=== PATIENT | female | born 1960 | race Caucasian/White ===

== ENCOUNTER 2018-03-04 09:01 | Inpatient (IN) | payer OTHER ==
[~2018-03-04] VITALS: Ht 167.6 cm; Wt 52.6 kg
[2018-03-04 09:44] LABS: BASOPHILS % 0.3 % (0.0-2.0); EOSINOPHILS % 2.2 % (0.0-5.0); HEMATOCRIT. 40.7 % (36.0-48.0); HEMOGLOBIN. 14.3 g/dL (12.0-16.0); LYMPHOCYTES % 32.4 % (20.0-50.0); MEAN CORPUSCULAR HEMOGLOBIN 31.4 pg (28.0-32.0); MEAN CORPUSCULAR VOLUME 89.5 fL (81.0-99.0); MEAN PLATELET VOLUME 8.3 fl (7.4-10.4); MONOCYTES % 8.7 % (2.0-8.0); NEUTROPHILS % 56.4 % (40.0-76.0); PLATELET 243 x1000/uL (130-400); RED BLOOD CELL COUNT 4.55 mill/uL (4.2-5.4); RED CELL DISTRIBUTION WIDTH 12.8 % (11.6-14.6)
[2018-03-04 09:51] LABS: CHLORIDE 107 mEq/L (98-107)
[2018-03-04 09:52] LABS: PARTIAL THROMBOPLASTIN TIME 28.2 sec (23.4-31.0); PROTHROMBIN TIME 10.7 sec (9.4-11.6)
[2018-03-04 09:59] LABS: CREATINE KINASE 81 IU/L (26-192)
[2018-03-04 10:02] LABS: CREATINE KINASE MB FRACTION 0.9 ng/mL (0.5-3.6)
[2018-03-04] MEDS ORDERED: ONDANSETRON HCL 4MG/2ML VIAL IV STA (10:10)
[2018-03-04] MEDS ORDERED: ASPIRIN 81MG TABLET PO STA (10:10)
[2018-03-04] MEDS ORDERED: NITROGLYCERIN OINT 1GM/INCH UDPKT TD STA (10:10)
[2018-03-04] MEDS ORDERED: MORPHINE SULFATE 4 MG/ML CPJ (NOT FOR IM USE) IV STA (10:10)
[2018-03-04] MEDS ORDERED: NA PHOS,M-B/NA PHOS,DI-BA ENEMA 118ML PR PRN (11:30)
[2018-03-04] MEDS ORDERED: MAGNESIUM/ALUMINUM HYDROXIDE/SIMETHICONE 30ML UDC PO PRN (11:30)
[2018-03-04] MEDS ORDERED: IPRATROPIUM/ALBUTEROL 0.5-3(2.5)MG/3ML NEB INH PRN (11:30)
[2018-03-04] MEDS ORDERED: CLONIDINE 0.1MG TABLET PO PRN (11:30)
[2018-03-04] MEDS ORDERED: GUAIFENESIN 200MG/10ML SUGAR FREE UDC PO PRN (11:30)
[2018-03-04] MEDS ORDERED: HYDROCODONE/ACETAMINOPHEN 5/325MG TABLET PO PRN (11:30)
[2018-03-04] MEDS ORDERED: DOCUSATE SODIUM 100MG CAPSULE PO PRN (11:30)
[2018-03-04] MEDS ORDERED: LORAZEPAM 2MG/ML CPJ IV PRN (11:30)
[2018-03-04] MEDS ORDERED: ONDANSETRON HCL 4MG/2ML VIAL IV PRN (11:30)
[2018-03-04] MEDS ORDERED: DIPHENHYDRAMINE 50MG/ML VIAL IV PRN (11:30)
[2018-03-04] MEDS ORDERED: REGADENOSON 0.4 MG/5 ML IV ONE (12:00)
[2018-03-04] MEDS ORDERED: ENOXAPARIN 80MG/0.8ML SYR SUBCUT ONE (12:00)
[2018-03-04 13:22] VITALS: BP 132/82
[2018-03-04 13:30] VITALS: BP 132/82
[2018-03-04] MEDS: AMLODIPINE 2.5MG TABLET PO SCH ×2 (13:30→23:30)
[2018-03-04] MEDS ORDERED: MORPHINE SULFATE 4 MG/ML CPJ (NOT FOR IM USE) IV PRN (13:30)
[2018-03-04] MEDS: ACETAMINOPHEN 325MG TABLET PO PRN ×2 (14:46→23:36)
[2018-03-04 15:15] LABS: CHLORIDE 109 mEq/L (98-107)
[2018-03-04 16:00] VITALS: BP 112/61
[2018-03-04 20:00] VITALS: BP 105/55
[2018-03-04 23:40] VITALS: BP 107/57
[2018-03-05 07:35] LABS: BASOPHILS % 0.5 % (0.0-2.0); EOSINOPHILS % 2.8 % (0.0-5.0); HEMATOCRIT. 38.7 % (36.0-48.0); HEMOGLOBIN. 13.5 g/dL (12.0-16.0); LYMPHOCYTES % 24.7 % (20.0-50.0); MEAN CORPUSCULAR HEMOGLOBIN 31.1 pg (28.0-32.0); MEAN CORPUSCULAR VOLUME 89.2 fL (81.0-99.0); MEAN PLATELET VOLUME 8.8 fl (7.4-10.4); MONOCYTES % 9.8 % (2.0-8.0); NEUTROPHILS % 62.2 % (40.0-76.0); PLATELET 205 x1000/uL (130-400); RED BLOOD CELL COUNT 4.33 mill/uL (4.2-5.4); RED CELL DISTRIBUTION WIDTH 12.8 % (11.6-14.6)
[2018-03-05 08:10] LABS: CHLORIDE 109 mEq/L (98-107)
[2018-03-05 08:14] VITALS: BP 112/63
[2018-03-05 08:21] LABS: LDL CHOLESTEROL 73 mg/dL (5-100)
[2018-03-05 08:22] LABS: HDL CHOLESTEROL 64 mg/dL (40-59); T4 FREE 0.88 ng/dL (0.76-1.46)
[2018-03-05] MEDS ORDERED: ENOXAPARIN 40MG/0.4ML SYR SUBCUT SCH (09:00)
[2018-03-05] MEDS ORDERED: ASPIRIN 81MG EC TABLET PO SCH ×2 (09:00)
[2018-03-05] MEDS ORDERED: REGADENOSON 0.4 MG/5 ML IV ONE (09:48)
[2018-03-05] MEDS: AMLODIPINE 2.5MG TABLET PO SCH (11:45)
[2018-03-05 12:34] VITALS: BP 130/79
== END 2018-03-05 14:30 | disposition home or self-care (01) | DRG 392 ==
LOC: ER 09:45 → 5WST 11:13 → ENRESERV 11:51
PROVIDERS: ADMIT Internal Medicine; ATTEND Internal Medicine
PROC: 4A02XM4 Measurement of Cardiac Total Activity, External Approach (ICD-10-PCS; principal; 2018-03-05)
DX: K21.9 Gastro-esophageal reflux disease without esophagitis (principal); E78.5 Hyperlipidemia, unspecified; E87.6 Hypokalemia; G25.81 Restless legs syndrome; I10 Essential (primary) hypertension; R00.0 Tachycardia, unspecified; Z82.0 Family history of epilepsy and other diseases of the nervous system; Z82.49 Family history of ischemic heart disease and other diseases of the circulatory system; Z90.49 Acquired absence of other specified parts of digestive tract; Z88.0 Allergy status to penicillin; Z88.2 Allergy status to sulfonamides; Z91.040 Latex allergy status
CPT/HCPCS: 36415; 71045; 78452; 78582; 80048; 80053; 80061; 82550; 82553; 83690; 83880; 84439; 84443; 84484; 85025; 85379; 85610; 85730; 93005; 93017; 93306; 93970; 96372; 96374; 96375; 99291; A9500; A9558; J1650; J2270; J2405; J2785